=== PATIENT | female | born 2000 | race Caucasian/White ===

== ENCOUNTER 2020-04-08 23:00 | Emergency (ER) | payer OTHER ==
[~2020-04-08] VITALS: Ht 167.6 cm; Wt 74.8 kg
[2020-04-08 23:05] VITALS: BP_SYST 121
--- NOTE | 2020-04-09 00:30 | NUR ---
Patient to ER bed 7 to gown for evaluation. Side rails up. Report given to FAITH DYER.
--- NOTE | 2020-04-09 00:31 | NUR ---
Came in ER this 19 year old female accompanied by father, ambulatory, fully alert, orientedx3, breathig spontaneously at room air, not in distress noted. with chief complaints of right elbow abrasion and pain, fell on the ground while playing basketball. 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 with temporary right elbow sling and abrasion at rt elbow, no active bleeding noted. initial vital signs take and recorded, stable
--- NOTE | 2020-04-09 00:42 | NUR ---
seen ad examined by Dr. Shaevr, awaits orders
[2020-04-09] MEDS ORDERED: BACITRACIN 1 GM OINT TP ONE ×2 (00:45→00:57)
--- NOTE | 2020-04-09 01:02 | NUR ---
LEFT ELBOW XRAY DONE AT BEDSIDE
[2020-04-09] MEDS ORDERED: DIPH-TET-PERTUS Vaccine 0.5 ML VIAL (ADACEL) I.M. ONE ×2 (01:30→01:37)
--- NOTE | 2020-04-09 01:46 | NUR ---
Patient given written and verbal discharge instructions and verbalizes understanding. ER MD discussed with patient the results and treatment provided. Patient in stable condition. ID arm band removed. Patient educated on pain management and to follow up with PMD. Pain Scale 0/10. Opportunity for questions provided and answered. Medication side effect fact sheet provided.
[2020-04-09 01:49] VITALS: BP_SYST 112
== END 2020-04-09 01:49 | disposition home or self-care (01) ==
LOC: SED 23:00
DX: S50.01XA Contusion of right elbow, initial encounter (principal); Z88.8 Allergy status to other drugs, medicaments and biological substances; W18.39XA Other fall on same level, initial encounter; Y93.89 Activity, other specified; Y92.89 Other specified places as the place of occurrence of the external cause; Y99.8 Other external cause status
CPT/HCPCS: 90715; 99283